=== PATIENT | male | born 1970 | race Caucasian/White ===

== ENCOUNTER 2020-09-09 21:53 | Emergency (ER) | payer OTHER, BC ==
[~2020-09-09] VITALS: Ht 182.9 cm; Wt 74.8 kg
[~2020-09-09 21:53] MED LIST: ASPIR 8181 MG PO; MULTIVITAMINS1 EAC7 PO; T COMPOUND PO
--- NOTE | 2020-09-10 00:02 | EKG ---
[facility] [address] [facility] [place], [place] [address] Signed Normal sinus rhythm Nonspecific ST abnormality Abnormal ECG No previous ECGs available Confirmed by SANDRA ANDREWS MD ([id number]) on 09/10/2020 12:02:12 AM Electronically Signed By: SANDRA ANDREWS MD 09/10/20 0002 PATIENT NAME: KYFRANKO ALICIA Electrocardiogram DATE OF : 66 PHYSICIAN: SANDRA ANDREWS MD REPORT #: [id number] REPORT IS CONFIDENTIAL AND NOT TO BE RELEASED WITHOUT AUTHORIZATION
== END 2020-09-10 00:06 | disposition home or self-care (01) ==
LOC: ED 21:53
DX: R07.9 Chest pain, unspecified (principal); R06.02 Shortness of breath; E03.9 Hypothyroidism, unspecified; Z88.8 Allergy status to other drugs, medicaments and biological substances; Z79.82 Long term (current) use of aspirin
CPT/HCPCS: 71045; 80053; 83735; 84484; 85025; 85379; 93005; 93010; 96374; 99285-25; J1885

== ENCOUNTER 2023-01-08 10:58 | Emergency (ER) | payer BC ==
[~2023-01-08] VITALS: Ht 182.9 cm; Wt 79.2 kg
[2023-01-08] MEDS ORDERED: BUSPIRONE HCL10 MG PO (11:15)
[2023-01-08] MEDS ORDERED: BUPROPION XL300 MG PO (11:15)
[2023-01-08 12:04] VITALS: BP 125/89
== END 2023-01-08 12:06 | disposition home or self-care (01) ==
LOC: ED 10:58
DX: S06.0X0A Concussion without loss of consciousness, initial encounter (principal); W22.09XA Striking against other stationary object, initial encounter; Z79.899 Other long term (current) drug therapy; Z88.8 Allergy status to other drugs, medicaments and biological substances
CPT/HCPCS: 70450

== ENCOUNTER 2023-01-19 07:51 | Emergency (ER) | payer OTHER, BC ==
[~2023-01-19] VITALS: Ht 182.9 cm; Wt 77.1 kg
[~2023-01-19 07:51] MED LIST changes: +BUPROPION XL300 MG PO; +BUSPIRONE HCL10 MG PO
--- OUTSIDE RECORDS SUMMARY | 2023-01-19 07:52 | XMS ---
PreManage Notification: FRANKO MCPHERSON Security Social Media Intern Events No recent Security Events currently on file CRITERIA MET - [facility] - 2 Visits in 30 Days CARE PROVIDERS There are no care providers on record at this time. Rogelio has no Care Guidelines for this patient. Sri VISIT COUNT (12 MO[address] [facility] [place] [facility]. TOTAL 2 NOTE: Visits indicate total known visits. [place] [place] (12 MO.) 01/19/2023 07:[address] [facility] [place] TYPE: Emergency COMPLAINT: - ARM LACERATION 01/08/2023 10:[address] [facility] [place] TYPE: Emergency COMPLAINT: - HEAD INJURY DIAGNOSES: - Allergy status to other drugs, medicaments and biological substances - Concussion without loss of consciousness, initial encounter - Headache, unspecified - Other [facility] ([facility] drug therapy - Striking against other stationary object, initial encounter INPATIENT VISIT TRACKING (12 MO.) No inpatient visits to display in this time frame [email or web address]
[2023-01-19] MEDS ORDERED: AMOX TR-K CLV1 EAC1 PO (08:26)
[2023-01-19 08:42] VITALS: BP 144/83
== END 2023-01-19 08:43 | disposition home or self-care (01) ==
LOC: ED 07:51
DX: S51.851A Open bite of right forearm, initial encounter (principal); W50.3XXA Accidental bite by another person, initial encounter; Z88.8 Allergy status to other drugs, medicaments and biological substances; Z79.899 Other long term (current) drug therapy
CPT/HCPCS: 90471; 90715; 99283-25

== ENCOUNTER 2023-04-02 12:58 | Day surgery (SDC) | payer BC ==
[~2023-04-02] VITALS: Ht 182.9 cm; Wt 77.3 kg
[~2023-04-02 12:58] MED LIST changes: +AMOX TR-K CLV1 EAC1 PO
[2023-04-02 13:25] VITALS: BP 108/70
[2023-04-02] MEDS ORDERED: TESTOSTERONE SL (13:29)
[2023-04-02 16:30] VITALS: BP 120/70
[2023-04-02 17:18] VITALS: BP 116/63
--- NOTE | 2023-04-05 18:00 | OR ---
[facility] [address] [facility] [place] [address] Signed DATE OF OPERATION: 04/02/2023 SURGEON: Anel Julio MD PREOPERATIVE DIAGNOSES: 1. Colon screening. 2. Self described "irritable bowel syndrome," possibly diarrhea predominant. POSTOPERATIVE DIAGNOSES: 1. Scattered diverticulosis. 2. Mild proctitis, probably bowel prep related. PROCEDURE: Total colonoscopy to cecum with biopsy of rectum/ ANESTHESIA: Intravenous sedation; fentanyl 100 mcg and Versed 3 mg. 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 He has never had colonoscopy in the past and is referred by DAKOTA Shah for consideration of colonoscopy. The patient is self described as having "irritable bowel syndrome" and possible diarrhea related symptoms. He has no family history of colon cancer. He is admitted at this time to undergo colonoscopy. He understands the risk of bleeding, infection, and perforation. Additionally, the patient notes that he has a "light weight" as regards to sedation and cautions us about that. FINDINGS: The prep was excellent. Complete colonoscopy was undertaken to the cecum. Ileocecal valve and appendiceal orifice were well identified. There are a few scattered diverticula throughout the colon but very minimal at most. The rectum had mild inflammation, possibly bowel prep related, though given his prior symptoms, biopsies were obtained to assess for occult colitis. There is no sign of polyp, cancer, or other abnormalities. DESCRIPTION OF PROCEDURE: The patient was brought to the endoscopy suite and placed in the lateral decubitus position, given intravenous sedation to the point of slurred speech and nystagmus. Digital rectal examination was normal. Electronically Signed By: ANEL JULIO MD 04/05/23 [facility] PATIENT NAME: FRANKO MCPHERSON OPERATIVE REPORT DATE OF : 66 REPORT #: [id number] PHYSICIAN: ANEL JULIO MD PCP: [facility] VELAZQUEZ NP REPORT IS CONFIDENTIAL AND NOT TO BE RELEASED WITHOUT AUTHORIZATION [facility] [address] [place], [place] [address] Signed An Olympus video colonoscope was passed in the rectum and manipulated throughout the colon ultimately intubating the cecum itself. The ileocecal valve and appendiceal orifice were normal. Diverticula had been noted throughout the colon, all of them small and rather scattered. The scope was withdrawn from the cecum and examination throughout showed no sign of polyps, only a few scattered diverticula as previously noted. Retroflexed view of the rectum confirmed mild proctitis. Biopsies were obtained to rule out occult colitis. The scope was straightened, withdrawn and removed. The patient was taken to recovery room in good condition. CONCLUDING DIAGNOSES: 1. Mild proctitis, possibly bowel prep related. Await pathology report for determining occult colitis (collagenous colitis, etc). 2. Minimal diverticulosis. PLAN: Recommend repeat colonoscopy in 10 years, sooner if clinically indicated. If the pathology report shows a pathologic finding of concern, additional treatment would be indicated. He will return to the ongoing care of Oma Velazquez. MD FUNMILAYO Mccrary/KAMERON /[id number] cc: DAKOTA Shah Copies: ~ Electronically Signed By: ANEL JULIO MD 04/05/23 1800 PATIENT NAME: FRANKO MCPHERSON OPERATIVE REPORT DATE OF : 66 REPORT #: [id number] PHYSICIAN: ANEL JULIO MD PCP: [facility] VELAZQUEZ NP REPORT IS CONFIDENTIAL AND NOT TO BE RELEASED WITHOUT AUTHORIZATION
== END 2023-04-02 17:30 | disposition home or self-care (01) ==
LOC: OPS 12:58 → DS 13:01 → OPS 14:00 → DS 14:00 → OPS 17:30
PROVIDERS: ATTEND Surgery
PROC: 0DBP8ZX Excision of Rectum, Via Natural or Artificial Opening Endoscopic, Diagnostic (ICD-10-PCS; principal; 2023-04-02 14:00)
DX: Z12.11 Encounter for screening for malignant neoplasm of colon (principal); E03.9 Hypothyroidism, unspecified; Z86.16 Personal history of COVID-19; Z87.820 Personal history of traumatic brain injury; K62.89 Other specified diseases of anus and rectum; K57.30 Diverticulosis of large intestine without perforation or abscess without bleeding; K62.1 Rectal polyp
CPT/HCPCS: 99153; G0500; J2250; J3010; J7121

== ENCOUNTER 2024-02-29 15:12 | Emergency (ER) | payer BC ==
[~2024-02-29] VITALS: Ht 182.9 cm; Wt 78.8 kg
[~2024-02-29 15:12] MED LIST changes: +TESTOSTERONE SL
--- OUTSIDE RECORDS SUMMARY | 2024-02-29 15:15 | XMS ---
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 Rogelio has no Care Guidelines for this patient. Sri VISIT COUNT (12 MO.) 1 [facility] TOTAL 1 NOTE: Visits indicate total known visits. ED/U[facility] VISIT TRACKING (12 MO.) 02/29/2024 15:13 [facility] [place] TYPE: Emergency COMPLAINT: - RT FOOT PAIN INPATIENT VISIT TRACKING (12 MO.) No inpatient visits to display in this time frame [id number]
[2024-02-29] MEDS ORDERED: GABAPENTIN100 MG PO (15:31)
[2024-02-29] MEDS ORDERED: REVATIO20 MG PO (15:32)
[2024-02-29] MEDS ORDERED: HYDROCODON-ACE1 EA10 PO (15:45)
[2024-02-29] MEDS ORDERED: HYDROCODONE/ACETA 5/325 TAB PO ONE (15:45)
[2024-02-29] MEDS ORDERED: DIPHTH,PERTUSS(ACELL),TET VAC 0.5 ML SYRINGE IM ONE (15:45)
[2024-02-29 16:16] VITALS: BP 131/82
== END 2024-02-29 16:18 | disposition home or self-care (01) ==
LOC: ED 15:12
DX: S92.314A Nondisplaced fracture of first metatarsal bone, right foot, initial encounter for closed fracture (principal); Z88.8 Allergy status to other drugs, medicaments and biological substances; Z79.899 Other long term (current) drug therapy
CPT/HCPCS: 73630; 90471; 90715; 99283-25

== ENCOUNTER 2025-09-02 04:23 | Emergency (ER) | payer BC ==
[~2025-09-02] VITALS: Ht 182.9 cm; Wt 80.0 kg
[~2025-09-02 04:23] MED LIST changes: +GABAPENTIN100 MG PO; +HYDROCODON-ACE1 EA10 PO; +REVATIO20 MG PO
[2025-09-02 04:45] LABS: BASOPHILS 1.0 % (0.2-1.2); EOSINOPHILS 5.2 % (0.8-7.0); LYMPHOCYTES 21.5 % (21.8-53.1); MCH 31.4 PG (25.7-32.2); MCHC 34.6 g/dL (32.3-36.5); MCV 90.7 fL (79.0-92.2); MONOCYTES 6.5 % (5.3-12.2); NEUTROPHILS 65.6 % (34.0-67.9); RBC 5.06 M/uL (4.63-6.08)
[2025-09-02 05:13] LABS: ALT (SGPT) 52.0 U/L (14-59); AST (SGOT) 25.0 U/L (15-37); GLOMERULAR FILTRATION RATE,EST 71.0 mL/min (>60); PROTEIN, TOTAL 7.2 g/dL (6.4-8.2); UREA NITROGEN 25.0 mg/dL (7-18)
[2025-09-02 06:52] VITALS: BP 128/90
--- NOTE | 2025-09-03 13:55 | EKG ---
[facility] [address] [facility] [place] [address] Signed Normal sinus rhythm Incomplete right bundle branch block Borderline ECG When compared with ECG of 24-OCT-2024 08:56, No significant change was found Confirmed by Ginger Shah DO ([id number]) on 09/03/2025 1:55:41 PM Electronically Signed By: GINGER SHAH DO 09/03/25 1355 PATIENT NAME: FRANKO MCPHERSON Electrocardiogram DATE OF : 66 PHYSICIAN: GINGER SHAH DO REPORT #: [id number] REPORT IS CONFIDENTIAL AND NOT TO BE RELEASED WITHOUT AUTHORIZATION
== END 2025-09-02 06:45 | disposition home or self-care (01) ==
LOC: ED 04:23
PROVIDERS: Emergency Medicine
DX: J38.5 Laryngeal spasm (principal); Z79.899 Other long term (current) drug therapy; Z88.5 Allergy status to narcotic agent
CPT/HCPCS: 36415; 70491; 71045; 80053; 83735; 83880; 84484; 85025; 85379; 87077; 87338; 93005; 93010; 99285-25; Q9967